=== PATIENT | male | born 1950 | race Caucasian/White ===

== ENCOUNTER 2017-06-30 06:27 | Inpatient (IN) ==
[~2017-06-30 06:27] MED LIST: ACETAMINOPHEN 500 MG TABLET PO ONE; CLINDAMYCIN PB 900 MG/50 ML BAG IV ONE; DEXAMETHASONE 4 MG/ML INJECTION IVP ONE; FAMOTIDINE PB 20 MG/50 ML BAG IV ONE; LIDOCAINE 1% (10mg/ml) 10mL MDV SQ ONE; LR 1,000 ML IV SCH; METOCLOPRAMIDE 10mg/2ml INJECTION IVP ONE; NOZIN NASAL SWAB NAS ONE; ONDANSETRON 4 MG/2 ML INJECTION IVP ONE
[2017-06-30 06:56] VITALS: BMI 30.9
[2017-06-30] MEDS ORDERED: LIDOCAINE 1% (10mg/ml) 2mL INJ PF SDV ID ONE (07:27)
[2017-06-30] MEDS: NS 1,000 ML IV SCH ×4 (07:55→21:59)
[2017-06-30] MEDS ORDERED: EPINEPHrine 0.25 MG, BUPIVACAINE 0.25% PF 30 ML, MORPHINE SULFATE 15 MG, KETOROLAC INJ ... OPSITE ONE (08:00)
[2017-06-30] MEDS ORDERED: VANCOMYCIN 1,000 MG INJECTION ONE (08:35)
[2017-06-30] MEDS ORDERED: MIDAZOLAM 2mg/2ml INJECTION IVP ONE (08:43)
--- NOTE | 2017-06-30 08:44 | Anesthesia Preoperative Report ---
Anesthesia Preoperative Record - Date and Time Date: 06/30/17 Preoperative Diagnosis: Rt TKA M17.11 Proposed Procedure: Right TKA NPO Since Date: 06/30/17 NPO Since Time: 00:00 Allergies/Adverse Reactions: Allergies Allergy/AdvReac Type Severity Reaction Status Date / Time cefdinir Allergy Unknown Shock, Verified 06/30/17 07:11 kidney failure Krwjnsf-Hlg-Yne Reductase AdvReac Unknown MYALGIAS, Verified 06/30/17 07:11 Inhibitor CONFUSION, FATIGUE tizanidine AdvReac Unknown AFIB Verified 06/30/17 07:11 - Vital Signs Vital Signs: Temperature 98.4 F 06/30/17 06:54 Pulse Rate 68 06/30/17 06:54 Respiratory Rate 15 06/30/17 06:54 Blood Pressure 130/78 06/30/17 06:54 Pulse Oximetry 95 06/30/17 06:54 Oxygen Delivery Method Room Air Height and Weight: Height 5 ft 11 in Weight 100.6 kg Body Mass Index 30.9 - Medications Inpatient Medications: Current Medications Epinephrine HCl 0.25 mg/Bupivacaine HCl 30 ml/Morphine Sulfate 15 mg/Ketorolac Tromethamine 60 mg/Sodium Chloride 65.25 mls @ 1 mls/hr OPSITE INTRAOP ONE PRN Reason: Protocol Stop: 07/03/17 01:14 Sodium Chloride (Normal Saline) 1,000 mls @ 50 mls/hr IV .Q20H LAUREN Last Admin: 06/30/17 07:55 Dose: 50 mls/hr Miscellaneous Medication (Tranexamic 1gm/Ns 100 Irr Mix) 100 ml IR O ONE Stop: 06/30/17 15:26 Sodium Chloride (Iv Flush) 10 - 80 ml IVF PRN PRN PRN Reason: Flushing Home Medications: Home Medications Medication Instructions Recorded Confirmed Type ALPRAZolam [Alprazolam] 0.5 mg PO Q6HPRN PRN #0 tab 07/07/15 06/28/17 History ALPRAZolam [Alprazolam] 1 mg PO HS #0 tab 07/07/15 06/30/17 History Allopurinol 1 tab PO DAILY #0 tab 07/07/15 06/30/17 History Escitalopram Oxalate [Lexapro] 1 tab PO DAILY #0 tab 07/07/15 06/30/17 History Omeprazole 20 mg PO ACB #0 tab 07/07/15 06/30/17 History Trazodone HCl 100 mg PO HS #0 tab 07/07/15 06/30/17 History Baclofen 10 mg PO QID #0 tab 06/22/16 06/30/17 History Finasteride 1 tab PO HS #0 tab 07/19/16 06/30/17 History Tamsulosin HCl 0.4 mg PO HS #0 cap 07/19/16 06/30/17 History Ascorbic Acid [Vitamin C] 1 tab PO DAILY #0 10/05/16 06/30/17 History Fluticasone Propionate [Flonase 2 spray NS DAILY #0 10/05/16 06/30/17 History Allergy Relief] Magnesium Oxide [Magnesium] 1 cap PO DAILY #0 cap 10/05/16 06/30/17 History Rivaroxaban [Xarelto] 1 tab PO DAILY #0 tab 10/05/16 06/30/17 History diphenhydrAMINE HCl [Benadryl] 2 cap PO BID #0 cap 12/06/16 06/30/17 History Flecainide [Tambocor] 1 tab PO BID #0 tab 12/07/16 06/30/17 History Lisinopril [Prinivil] 5 mg PO DAILY 06/28/17 06/30/17 History Potassium Gluconate 90 mg PO DAILY 06/28/17 06/30/17 History Cholecalciferol (Vitamin D3) 1 tab PO DAILY 06/30/17 06/30/17 History [Vitamin D3] Combivent Respimat Inhaler 2 puff INH PRN PRN 06/30/17 06/30/17 History Docusate Sodium [Stool Softener] 50 mg PO DAILY 06/30/17 06/30/17 History Iron 65 mg PO DAILY 06/30/17 06/30/17 History Lidocaine 5% Patch [Lidoderm] 1 each DAILY 06/30/17 06/30/17 History Oxycodone HCl [Oxaydo] 7.5 mg PO PRN PRN 06/30/17 06/30/17 History Psyllium Husk/Aspartame [Metamucil 24 gm PO DAILY 06/30/17 06/30/17 History Powder] Vitamin B Complex Vit C No.3 [B 1 each PO DAILY 06/30/17 06/30/17 History Complex with Vitamin C] - Medical History Respiratory: Reports: Asthma (rarely uses inhaler), Chronic Obstructive Pulmonary Disease (COPD) (per chart hx) Cardiovascular: Reports: Angina, Arrhythmia (hx of afib), Congestive Heart Failure (per pt), Coronary Artery Disease (mild), Hypertension, High Cholesterol , Other Gastrointestional: Reports: Gastroesophageal Reflux Disease (well controlled with meds) Neuro/Musculoskeletal: Reports: Back Problems (L5-S1 surgery) Renal/Endocrine: Reports: Renal Failure (hx/ CKD) Other History: DENIES: Anesthesia Reactions, Now, Blood Transfusions, Chemotherapy , Cancer, Hemophilia, Malignant Hyperthermia, Sickle Cell Disease, Other - Surgical History HEENT Surgeries: Reports: Eye Surgery (Cataract OU), Nose Surgery (sinus), Tonsillectomy Cardiac Surgeries/Treatments: Reports: Cardiac Catheterization, Other ( cardioversion X 7) Respiratory Surgery/Treatments: Reports: Oxygen Administration Comment Only: CPAP Use (does not tolerate CPAP use) Musculoskeletal Surgery/Tx: Reports: Total Knee Replacement () Anesthesia Reactions: None Hx Family Anesthesia Reaction: No History of Motion Sickness: No - Social History Smoking Status: Never smoker Substance Use Type: does not use - Pertinent Findings Laboratory: CBC and BMP 06/30/17 07:24 06/30/17 07:24 BMP 06/30/17 07:24 Sodium 136 Potassium 4.1 Chloride 98 Carbon Dioxide 29 BUN 10.0 Creatinine 0.8 Glucose 87 Calcium 9.1 Liver Function 06/30/17 Range/Units 07:24 Total Bilirubin 0.70 (0.20-1.30) MG/DL AST 31 (17-59) U/L ALT 39 (21-72) U/L Alkaline Phosphatase 86 (38-126) U/L Albumin 4.5 (3.5-5.0) G/DL EKG Rhythm: First Degree AV-Block - Physical Exam Respiratory Exam: Present: lungs clear, bilateral breath sounds equal Cardiovascular Exam: Present: regular rate and rhythm, no murmur - Airway Assessment Mallampati Score: II TMD: 3 Fingerbreadths Neck Extension: good Teeth: patial upper dentures Overall Assessment: no airway concerns - ASA ASA Score: 3 - Plan Anesthesia: Regional Block Regional/Trunk Block: Spinal - Discussion Discussion: Discussed risks/options/alternatives of anesthesia and questions answered. Patient consents. Nursing pain assessment noted. Present for Discussion: spouse Attestation Statement: Prior to the delivery of any anesthetic medication, I examined the patient, developed the plan, obtained the patient's consent and discussed the risk and benefits of the procedure with the patient/guardian. - Additional Information Seen by Anesthesia: Yes
[2017-06-30] MEDS ORDERED: EPINEPHrine 0.25 MG, BUPIVACAINE 0.25% PF 30 ML, MORPHINE SULFATE 15 MG in NS 30 ML OPSITE ONE (09:30)
[2017-06-30] MEDS ORDERED: PROPOFOL 500 MG/50 ML VIAL IV ONE (09:37)
[2017-06-30] MEDS ORDERED: VANCOMYCIN 1,000 MG INJECTION IAR ONE (09:40)
[2017-06-30] MEDS ORDERED: EPHEDRINE 50mg/ml INJECTION ONE (09:43)
[2017-06-30] MEDS ORDERED: PROPOFOL 20 ML ONE (10:09)
[2017-06-30] MEDS ORDERED: ROPIVACAINE 0.5% (5mg/ml) 30ml INJ ONE (10:16)
--- NOTE | 2017-06-30 10:30 | Operative Note ---
- Procedure Date of Admission: 06/30/17 Side: right Preoperative Diagnosis: knee primary DJD Postoperative Diagnosis: Same as preoperative diagnosis. Operation: total knee arthroplasty Surgeon: Michelle James MD Tobacco Stripping Machine Operator: Nasim Arias Complications: None. Regional/Trunk Block: Spinal Peripheral Nerve Block: Saphenous-Right Estimated Blood Loss: See Anesthesia Record. Fluids: Please see Anesthesia Record. Description of Procedure: Mr. Winslow and the right knee were identified and marked in the preoperative holding area. He was brought back to the operating suite and placed supine on the operating table. Spinal anesthetic was administered. The operative lower extremity was prepped and draped in a sterile fashion. Timeout was performed. He had a fixed varus deformity. An anterior midline incision followed by medial parapatellar arthrotomy was performed. The tourniquet was not used until cementing. Hemostasis was obtained with electrocautery. The patella was resurfaced to a size 35. He had severe disease in the medial compartment. A large medial release was performed. A distal femoral osteotomy was then performed in 5 of valgus using intramedullary guide. The femur was sized at a 7 and rotation set using the epicondylar axis. Distal femoral cuts were performed with a 4-in-1 cutting block. A proximal tibial cut was then made perpendicular to its long axis using an extramedullary guide. At this point remaining meniscus and osteophytes were removed and joint cocktail was injected throughout soft tissue. Trial components were placed with a 9 mm spacer. This allowed for full extension and flexion and the patella tracked well. The leg was then exsanguinated and the tourniquet inflated to 250 mmHg. The tibia was then stamped at a size 6 at the proper rotation. The bone was then prepared for cementing and Jovanny Triath[employer] components were cemented into place and allowed to cure in extension. The tourniquet was then let down and hemostasis obtained with electrocautery. Betadine solution was used during the curing period for 3 minutes. 1 g of TXA was allowed to sit in the wound for 5 minutes and then suctioned out. 1 g of vancomycin powder was placed into the joint before the capsulotomy was repaired with #1 Vicryl. I then left my appeals assistant close the subcutaneous tissue and skin with 2-0 Vicryl and Monocryl. Dermabond was used on the skin. The drapes were then removed and she was taken to recovery room under the care of anesthesia.
[2017-06-30] MEDS ORDERED: DiphenhydrAMINE 50 MG/ML INJECTION IVP PRN (11:40)
[2017-06-30] MEDS ORDERED: ALPRAZolam 0.5 MG TABLET PO PRN (11:40)
[2017-06-30] MEDS ORDERED: NOZIN NASAL SWAB NAS ONE (11:40)
[2017-06-30] MEDS ORDERED: Ipatropium/Albuterol 20/100mcg INHALER (4gm) ORAL INH PRN (11:40)
[2017-06-30] MEDS ORDERED: DiphenhydrAMINE 25 MG CAPSULE PO PRN (11:40)
--- NOTE | 2017-06-30 12:00 | XRay Report ---
Indication: postoperative image PROCEDURE: XR knee RT 2V: Encounter: Initial Comparison: June 13, 2017 Findings: Postoperative changes of right total knee replacement are seen. There is expected postoperative subcutaneous gas. No evidence of hardware failure or acute fracture. No retained radiopaque surgical instruments or sponges. Overlying material causing artifact. Impression: New right total knee prosthesis without evidence of immediate complication. .
[2017-06-30] MEDS ORDERED: TRANEXAMIC ACID 1,000mg/10ml INJECTION IV ONE (13:55)
[2017-06-30] MEDS: ACETAMINOPHEN 325 MG TABLET PO SCH ×3 (13:59→21:56)
[2017-06-30] MEDS: NOZIN NASAL SWAB NAS SCH ×2 (14:00→22:17)
[2017-06-30] MEDS: BACLOFEN 10 MG TABLET PO SCH ×3 (14:04→20:15)
[2017-06-30] MEDS: MAGNESIUM OXIDE 400 MG TABLET PO SCH (14:15)
[2017-06-30] MEDS ORDERED: ALBUTEROL/IPRATROPIUM 2.5mg-0.5mg/3ml NEB ORAL INH PRN (14:30)
[2017-06-30] MEDS: Oxycodone *IR* 5 MG TABLET PO PRN ×3 (15:03→20:16)
[2017-06-30] MEDS: CLINDAMYCIN PB 900 MG/50 ML BAG IV SCH ×2 (15:05→21:57)
[2017-06-30] MEDS ORDERED: SALINE FLUSH 10ml SYRINGE IVF PRN (15:25)
[2017-06-30] MEDS ORDERED: TRANEXAMIC ACID 1gm/NS 100ml IRR MIX IR ONE (15:25)
--- NOTE | 2017-06-30 17:43 | Anesthesia Postoperative Note ---
- Date and Time Date: 06/30/17 Time: 17:42 - Status Patient Participated in Evaluation: Patient Participated in Person Vital Signs: Temperature 96.3 F L 06/30/17 11:42 Pulse Rate 71 06/30/17 15:39 Respiratory Rate 16 06/30/17 13:45 Blood Pressure 124/78 06/30/17 15:39 Pulse Oximetry 99 06/30/17 15:39 Oxygen Delivery Method Room Air Oxygen Flow Rate 2 Respiratory Function: Airway Patent Cardiovascular Function: Regular Pulse EKG Rhythm: Normal Sinus Rhythm Mental Status: Alert and Oriented Hydration: Taking PO Fluids Complications During Recover: None Apparent - Follow-Up Instructions Instructions: Per Surgeon
[2017-06-30] MEDS ORDERED: MORPHINE SULFATE 10 MG SYRINGE IV PRN (19:10)
[2017-06-30] MEDS: ALPRAZolam 1 MG TABLET PO SCH ×2 (20:15→22:07)
[2017-06-30] MEDS: TRAZODONE 100 MG TABLET PO SCH ×2 (20:24→22:07)
[2017-06-30 20:38] VITALS: RESP 18
[2017-06-30] MEDS ORDERED: LIDOCAINE PATCH REMOVAL TOP SCH (21:00)
[2017-06-30] MEDS: DOCUSATE SODIUM 100 MG CAPSULE PO SCH (21:57)
[2017-06-30] MEDS ORDERED: FINASTERIDE 5 MG TABLET PO SCH (22:00)
[2017-06-30] MEDS ORDERED: SENNOSIDES 8.6 MG TABLET PO SCH (22:00)
[2017-06-30] MEDS ORDERED: TAMSULOSIN 0.4 MG CAPSULE PO SCH (22:00)
[2017-06-30] MEDS: FLECAINIDE 100 MG TABLET PO SCH (22:17)
[2017-07-01] MEDS: NS 1,000 ML IV SCH (01:18)
[2017-07-01] MEDS: CLINDAMYCIN PB 900 MG/50 ML BAG IV SCH (03:53)
[2017-07-01] MEDS: Oxycodone *IR* 5 MG TABLET PO PRN ×3 (03:55→13:02)
[2017-07-01] MEDS: NOZIN NASAL SWAB NAS SCH ×2 (05:44→13:02)
[2017-07-01] MEDS ORDERED: OMEPRAZOLE 20 MG CAPSULE PO SCH (06:30)
[2017-07-01] MEDS ORDERED: RIVAROXABAN 20 MG TABLET PO SCH ×2 (08:00→17:30)
[2017-07-01] MEDS ORDERED: FERROUS SULFATE 324 MG TABLET PO SCH (08:00)
--- NOTE | 2017-07-01 08:15 | Orthopedic Progress Note ---
Date: Subjective/Severity of Illness: Mr Winslow is doing very well. Pain level is moderate but overall well controlled. He walked a couple times from the west windows to the ER. No CP, cough or SOA. No concerns this AM. Orthopedic Objective PO Vital signs: Temperature 95.7 F L 07/01/17 07:33 Pulse Rate 71 07/01/17 07:33 Respiratory Rate 18 07/01/17 07:33 Blood Pressure 111/67 07/01/17 07:33 Pulse Oximetry 97 07/01/17 07:33 Oxygen Delivery Method Room Air Oxygen Flow Rate 2 Height and Weight: Height 5 ft 11 in Weight 228 lb 9.91 oz Body Mass Index 30.9 - Constitutional General Appearance: Present: alert, no acute distress - Respiratory Exam Present: non-labored - Extremities Exam Extremities: Present: pulses intact, normal capillary refill. Absent: calf tenderness - Surgical Site Incision: Mepilex dressing intact, no drainage - Neurological Exam Present: no deficits - Psychiatric Exam Present: alert, normal affect - Labs Result Diagrams: 07/01/17 04:11 07/01/17 04:11 Abnormal lab results 07/01/17 07/01/17 Range/Units 04:11 04:11 RBC 3.46 L (4.50-5.90) M/MM3 Hgb 10.8 L (13.5-17.5) GM/DL Hct 33.2 L (41-53) % MPV 8.6 L (9.4-12.4) UM3 Creatinine 0.7 L (0.8-1.5) MG/DL Glucose 116 H (75-110) MG/DL H & H 06/30/17 07/01/17 Range/Units 07:24 04:11 Hgb 12.0 L 10.8 L (13.5-17.5) GM/DL Hct 37.3 L 33.2 L (41-53) % Orthopedic Assessment and Plan (1) Primary localized osteoarthritis of right knee Status: Acute Assessment and Plan: Resume Xarelto for VTE prophylaxis and coverage of A Fib. Labs look good this AM. SCD's. PT/OT services to improve independent function. Discharge Planning per Case Management. Hospital Course Summary Disclaimer: The visit summary below is not to be considered part of the above Progress Note.
[2017-07-01] MEDS: FLECAINIDE 100 MG TABLET PO SCH (08:24)
[2017-07-01] MEDS: MAGNESIUM OXIDE 400 MG TABLET PO SCH (08:24)
[2017-07-01] MEDS: ACETAMINOPHEN 325 MG TABLET PO SCH ×2 (08:24→13:02)
[2017-07-01] MEDS: BACLOFEN 10 MG TABLET PO SCH ×2 (08:25→13:01)
[2017-07-01] MEDS: DOCUSATE SODIUM 100 MG CAPSULE PO SCH (08:30)
[2017-07-01] MEDS ORDERED: ESCITALOPRAM 10 MG TABLET PO SCH (09:00)
[2017-07-01] MEDS ORDERED: POLYETHYL GLYCOL 3350 17gm PACKET PO SCH (09:00)
[2017-07-01] MEDS ORDERED: ASCORBIC ACID 500 MG TABLET PO SCH (09:00)
[2017-07-01] MEDS ORDERED: ALLOPURINOL 100 MG TABLET PO SCH (09:00)
[2017-07-01] MEDS ORDERED: LISINOPRIL 10 MG TABLET PO SCH (09:00)
[2017-07-01] MEDS ORDERED: FLUTICASONE NASAL SPRAY 50mcg EA NOSTRIL SCH (09:00)
[2017-07-01] MEDS ORDERED: LIDOCAINE 5% PATCH TOP SCH (09:00)
[2017-07-01] MEDS ORDERED: SENNOSIDES 8.6 MG TABLET PO PRN (10:57)
--- NOTE | 2017-07-01 11:26 | Discharge Summary ---
Orthopedic Discharge Info Date of admission: 06/30/17 06:27 Primary care physician: Jamie Cruz II, MD Attending Physician: Victor Manuel James MD Consults: 06/30/17 06:51 Consult to Anesthesiology [CONS] Routine Consulting Provider: MU Cid Reason For Exam: Preoperative Assessment 06/30/17 11:40 Case Management Consult [CONS] Routine Reason For Exam: Discharge Planning DME-Walker [CONS] Routine Height: 5 ft 11 in Weight: 221 lb 12.56 oz Comment: change dressing in 2 weeks Total Joint Outpatient Therapy [CONS] Routine Comment: change dressing in 2 weeks - Discharge Diagnosis (1) Primary localized osteoarthritis of right knee Status: Acute - Procedures Procedures: Procedures Replacement of Left Knee Joint with Synthetic Substitute, Cemented, Open Approach (01/06/17) - Laboratory Result Diagrams: 07/01/17 04:11 07/01/17 04:11 Laboratory: Abnormal lab results 07/01/17 07/01/17 Range/Units 04:11 04:11 RBC 3.46 L (4.50-5.90) M/MM3 Hgb 10.8 L (13.5-17.5) GM/DL Hct 33.2 L (41-53) % MPV 8.6 L (9.4-12.4) UM3 Creatinine 0.7 L (0.8-1.5) MG/DL Glucose 116 H (75-110) MG/DL H & H 06/30/17 07/01/17 Range/Units 07:24 04:11 Hgb 12.0 L 10.8 L (13.5-17.5) GM/DL Hct 37.3 L 33.2 L (41-53) % Orthopedic Discharge HPI - HPI Comments This patient was admitted for elective surgical tx of end stage degenerative joint disease that failed to respond to conservative treatment. Further details of this is found in the admission H&P. Orthopedic Hospital Course Hospital course: 07/01/17 11:18 After appropriate preoperative clearance and signing of operative consent, the patient was given IV antibiotics, according to orthopedic protocol. The patient was taken to the operating room and underwent elective joint arthroplasty. Following surgery, antibiotics were discontinued less than 24 hours according to joint protocol. Appropriate anticoagulants were initiated and SCDs added for DVT prevention. The dressing was clean, dry, and intact. Pain control was obtained via multimodal approach. Bowel motivation addressed with scheduled and PRN medications. Early mobilization was initiated through PT services. Discharge arrangements made by a collaborative effort between the patient and Case Management. Follow-up is scheduled in 2-3 weeks. Discharge instructions given by orthopedic providers and nursing staff at discharge. Discharge condition was good. - Postoperative Anemia patient received IVF, labs monitored daily, no intervention required, HGB drop- acceptable Discharge Plan - Med Rec/Dispo Referrals/Follow Up: Victor Manuel James MD [Physician] - 07/25/17 8:30 am Additional Instructions: JOEY ALSTON ON 07/04/2017 AT 10:00AM FOR PHYSICAL THERAPY EVAL. PHONE [phone] Prescriptions: New Acetaminophen [Tylenol] 650 mg PO QID #100 tablet Oxycodone *Ir* [Roxicodone *Ir*] 5 - 15 mg PO Q3H PRN #60 tablet PRN Reason: Breakthrough Pain Continue Trazodone HCl 100 mg PO HS #0 tab Omeprazole 20 mg PO ACB #0 tab Fluticasone Propionate [Flonase Allergy Relief] 2 spray NS DAILY #0 Lisinopril [Prinivil] 5 mg PO DAILY Potassium Gluconate 90 mg PO DAILY Cholecalciferol (Vitamin D3) [Vitamin D3] 1 tab PO DAILY Docusate Sodium [Stool Softener] 50 mg PO DAILY Psyllium Husk/Aspartame [Metamucil Powder] 24 gm PO DAILY Lidocaine 5% Patch [Lidoderm] 1 each DAILY Combivent Respimat Inhaler 2 puff INH PRN PRN PRN Reason: Asthma Vitamin B Complex Vit C No.3 [B Complex with Vitamin C] 1 each PO DAILY ALPRAZolam [Alprazolam] 0.5 mg PO Q6HPRN PRN #0 tab PRN Reason: ANXIETY ALPRAZolam [Alprazolam] 1 mg PO HS #0 tab Escitalopram Oxalate [Lexapro] 1 tab PO DAILY #0 tab Allopurinol 1 tab PO DAILY #0 tab Baclofen 10 mg PO QID #0 tab Tamsulosin HCl 0.4 mg PO HS #0 cap Finasteride 1 tab PO HS #0 tab Ascorbic Acid [Vitamin C] 1 tab PO DAILY #0 Magnesium Oxide [Magnesium] 1 cap PO DAILY #0 cap Rivaroxaban [Xarelto] 1 tab PO DAILY #0 tab diphenhydrAMINE HCl [Benadryl] 2 cap PO BID #0 cap Flecainide [Tambocor] 1 tab PO BID #0 tab Iron 65 mg PO DAILY Discontinued Oxycodone HCl [Oxaydo] 7.5 mg PO PRN PRN PRN Reason: Pain - Disposition 01 Discharged Home, Self-Care
[2017-07-01 12:42] VITALS: BP 161/78; PULSE 85; TEMP 95.3; O2SAT 98
[2017-07-02] MEDS ORDERED: BISACODYL 10 MG SUPPOSITORY RECTALLY SCH (20:00)
== END 2017-07-01 14:00 | disposition home or self-care (01) | DRG 470 ==
LOC: SRG 06:27
PROVIDERS: ADMIT Orthopaedic Surgery; ATTEND Orthopaedic Surgery